=== PATIENT | male | born 1980 | race Caucasian/White ===

== ENCOUNTER → 2017-10-19 08:17 | Outpatient (CLI) | payer OTHER, SELFPAY ==
[2017-10-19 10:12] LABS: Ferritin 139 ng/mL (26-388); Iron 170 ug/dL (65-175); Iron Binding Capacity,Total 298 ug/dL (250-450)
[2017-10-20 15:48] LABS: HEPATITIS B SURFACE AG Negative (Negative); Hepatitis A IgM Antibody Negative (Negative); Hepatitis B Core AB IgM Negative (Negative)
[2017-10-21 11:37] LABS: ANTINUCLEAR ANTIBODIES DIRECT Negative (Negative); Anti-Mitochondrial AB <20.0 Units (0.0-20.0)
[2017-10-21 11:37] LABS: Anti-Smooth Muscle ABS 11 Units (0-19); Ceruloplasmin 18.3 mg/dL (16.0-31.0); Hep C Antibodies 0.1 s/co ratio (0.0-0.9)
== END ==
DX: R10.11 Right upper quadrant pain (principal); K76.0 Fatty (change of) liver, not elsewhere classified
CPT/HCPCS: 36415; 76705; 80074; 82390; 82728; 83516; 83540; 83550; 86038

== ENCOUNTER → 2020-07-16 08:54 | Outpatient (CLI) | payer OTHER, SELFPAY ==
[2018-03-01 09:38] VITALS: BMI 27.3
[2020-07-16 10:13] LABS: NATERA MAILED SPECIMEN
== END ==
PROVIDERS: Visit Provider Obstetrics & Gynecology
DX: Z31.440 Encounter of male for testing for genetic disease carrier status for procreative management (principal)
CPT/HCPCS: 36415

== ENCOUNTER → 2024-06-22 | Outpatient (CLI) | payer OTHER, SELFPAY ==
--- NOTE | 2024-06-22 13:00 | VAS_PTH ---
PATIENT: RACHEL MADDEN LOC: [facility] U#:[id number] AGE/SX: 44/M ROOM: RE06/22/[address]: Dr. Justus Dominguez MD : 1980 BED: DIS: 06/22/2024 SPEC #: [id number] RECD: 06/22/24 15:52 STATUS: MICHELLE DORIS #: [id number] INGRID: 06/22/24 13:[address]: Justus Dominguez DEPT: SURGICAL PATHOLOGY RECD BY: Jose Rossi ENTERED: 06/22/24 16:08 SP TYPE: VAS VERO DR: No Primary Care Phys Tissues: A - Vas deferens, NOS Procedures: Surgery Specimen Level II HEADER OPERATION: Vasectomy PRE-OP DIAGNOSIS: Vasectomy TISSUE SUBMITTED: A- Left vas deferens, B- Right vas deferens MICROSCOPIC DIAGNOSIS A. Left vas deferens, vasectomy: * Benign vas deferens with complete cross sections obtained B. Right vas deferens, vasectomy: * Benign vas deferens with complete cross sections obtained MICROSCOPIC DESCRIPTION Slides are reviewed. GROSS DESCRIPTION A. Received in formalin in a container labeled with the patient's name, date of , and L vas deferens is a 0.7 cm in length by 0.3 cm in diameter tubular portion of lanier-pink soft tissue. The outer surface is inked black, and it is submitted entirely in A1. B. Received in formalin in a container labeled with the patient's name, date of , and R vas deferens is a 0.8 cm in length by 0.3 cm in diameter tubular portion of lanier-pink soft tissue. The outer surface is inked green, and it is submitted entirely in B1. [facility] 06-22-2024 CPT:21914c3
== END | disposition home or self-care (01) ==
LOC: LABSPEC 15:55
PROVIDERS: Referring Provider Surgery; Visit Provider Surgery
DX: Z98.52 Vasectomy status (principal)
CPT/HCPCS: 88302

== ENCOUNTER → 2024-07-26 | Outpatient (CLI) | payer OTHER, SELFPAY ==
[2024-07-26 12:09] LABS: Semen Analysis Post Vas PRELIMINARY PRESENT
[2024-07-26 16:30] LABS: Pathologist Review Reviewed
--- OUTSIDE RECORDS SUMMARY | 2024-07-26 20:33 | XMS RPT_ITS | CCD ---
Author Organization [facility] CLINICAL ESTHETICIAN [facility] Care Team Providers Care Packing Line Operator Name Role Phone HUNG YODER Unavailable Unavailgreg Dominguez MD, Dr. Jerome Attending Provider Care Physician, No Primary Primary Care Provider Dr. Justus Herman MD Referring Provider BENITO LANGLEY Attending Unavailable KIRAN CAMPOS Attending Unavailable KIRAN CAMPOS Attending Unavailable Care Physician, No Primary Referring Provider Un available Justus Dominguez Attending Unavailable Justus Dominguez Attending Unavailable Care Physician, No Primary Primary Care Unava ilJustus Mcgraw Referring Unavailable Justus Dominguez Attending Unavailable Care Physician, No Primary Referring Unava ilable Care Physician, No Primary Primary Care Unava ilJustus Mcgraw Attending Unavailable Allergies Allergy Classification Reported Allergen(s) Allergy Type Date of Onset Reaction(s) Facility (3 sources) Iodine; Translations: [IODINE] Drug Allergy 3 [facility] Comment on above: states shell fish is what reacts (1 source) Shellfish; Translations: [SHELLFISH ALLERGY] Propensity to adverse reactions to drug (disorder) 3 [facility] Repository (1 source) Iodine Drug Allergy 5 [facility] Medications Current Medications Medication Drug Class(es) Dates Sig (Normalized) Sig (Original) cholecalciferol 0.025 mg oral capsule (2 sources) Vitamin D Start: 05-24-2024 take 1 capsule by mouth once daily Cholecalciferol (Vitamin D3) 25 mcg (1,000 unit) capsule Active 25 ug PO daily May 24, 2024 12:00am mecobalamin 1 mg chewable tablet (2 sources) Start: 04-10-2025 Mecobalamin (Vitamin B12) (B12 Active) 1,000 mcg tablet,chewable Active 1000 ug PO daily May 24, 2024 12:00am Milk Thistle (2 sources) Start: 05-24-2024 take 1 capsule by mouth twice daily Milk Thistle 150 mg capsule Active 150 mg PO TWICE A DAY May 24, 2024 12:00am give with meal/snack omega-3 acid ethyl esters (mcfp) 1000 mg oral capsule (2 sources) Start: 05-24-2024 [place]-3 Acid Ethyl Esters 1 gram capsule Active 1 NMA PO daily May 24, 2024 12:00am Completed/Discontinued Medications Medication Drug Class(es) Dates Sig (Normalized) Sig (Original) acetaminophen 325 mg / dextromethorphan hydrobromide 10 mg / phenylephrine hydrochloride 5 mg oral capsule (2 sources) Uncompetitive X-asuywg-C-aspartat e Receptor Antagonist, Sigma-1 Agonist, alpha-1 Adrenergic Agonist Start: 03-01-2018 End: 05-24-2024 Phenylephrine-Dm- Acetaminophen (Vicks Dayquil Cold-Flu Relief) 5-10-325 mg capsule Discontinued NMA PO March 01, 2018 1:00am May 24, 2024 8:47am acetaminophen 325 mg / guaiFENesin 200 mg / phenylephrine hydrochloride 5 mg oral tablet (2 sources) alpha-1 Adrenergic Agonist Start: 03-01-2018 End: 05-24-2024 Phenylephrine-[place] taminophen-Gg (Mucinex Sinus-Max Sev Congestn) 5-325-200 mg tablet Discontinued 2 {tbl} PO ONCE March 01, 2018 1:00am May 24, 2024 8:47am amoxicillin 875 mg / clavulanate 125 mg oral tablet (2 sources) Penicillin-class Antibacterial Start: 03-01-2018 End: 05-24-2024 Amoxicillin-Pot Clavulanate 875-125 mg tablet Discontinued 1 {tbl} PO TWICE A DAY March 01, 2018 1:00am May 24, 2024 8:46am LORazepam 2 mg oral tablet (2 sources) Benzodiazepine Start: 05-24-2024 End: 05-25-2024 take 1 tablet by mouth once Lorazepam (Ativan) 2 mg tablet Discontinued 2 mg PO ONCE 1 1 May 24, 2024 12:00am May 24, 2024 12:00am May 25, 2024 12:09am Take two hours before procedure oxyCODONE hydrochloride 5 mg oral tablet (2 sources) Opioid Agonist Start: 06-22-2024 End: 06-25-2024 take 1 tablet by mouth every four hours as needed for pain Oxycodone 5 mg tablet Discontinued 5 mg PO Q4H as needed for pain 7 3 June 22, 2024 June 24, 2024 12:00am June 25, 2024 12:07am Problems Active Problems Problem Classification Problem Date Documented Date Episodic/Chronic Attention-deficit, conduct, and disruptive behavior disorders (2 sources) Attention-deficit hyperactivity disorder, unspecified type; Translations: [Attention-deficit hyperactivity disorder, unspecified type] Onset: 11-18-2022 Chronic Chronic obstructive pulmonary disease and bronchiectasis (2 sources) Bronchitis; Translations: [Bronchitis, not specified as acute or chronic] 05-24-2024 Episodic Contraceptive and procreative management (11 sources) Patient encounter status; Translations: [Encounter for other general counseling and advice on contraception] Onset: 06-22-2024 05-24-2024 Episodic Other upper respiratory infections (2 sources) Acute frontal sinusitis; Translations: [Acute frontal sinusitis, unspecified] 05-24-2024 Episodic Past or Other Problems Problem Classification Problem Date Documented Da te Episodic/Chronic Allergic reactions (2 sources) Allergic contact dermatitis due to plants, except food; Translations: [Allergic contact dermatitis due to plants, except food] Onset: 08-03-2023 Episodic Results Test Name Value Interpretation Reference Range Facility Surgery Visit Reporton 06-29 Surgery Visit Report [facility] [address] [place] [address]. [address] [place] [address] OFFICE VISIT Date of Service: 06/29/24 MR#: [id number] Acct: [id number] Name: RACHEL MADDEN Rep #: [id number] : 1980 Provider: Dr. Justus fuentes MD Age/Sex: 44/M Location: [facility] Status: Signed Intake Vital Signs 03/01/18 09:38 Height 5 ft 11.5 in Intake Visit Reasons: VASECTOMY DOS 06/22 Chief Complaint: vasectomy 06/22 Is patient in pain?: No Allergies iodine Allergy (Verified 06/29/24 09:20) Unknown Medications ???Medication ???Instructions ???Recorded ???Confirmed ???Type cholecalciferol (vitamin D3) 25 25 mcg PO QDAY 05/24/24 06/29/24 H istory mcg (1,000 unit) capsule mecobalamin (vitamin B12) 1,000 1,000 mcg PO QDAY 05/24/24 5 History mcg chewable tablet (B12 Active) milk thistle 150 mg capsule 150 mg PO BID 05/24/24 06/29/24 Hi story omega-3 acid ethyl esters 1 gram 1 cap PO QDAY 05/24/24 06/29/24 Hi story capsule Subjective Details: Patient doing well after vasectomy with no complaints Objective Details: Incisions are clean dry and intact and sutures were removed Coding Level of Care Code Global Post Op Diagnoses S/P vasectomy Z98.52 [facility] Medical History (Updated 06/29/24 @ 09:20 by Anastasia Wallace) Acute frontal sinusitis Bronchitis Surgical History (Updated 06/28/24 @ 12:20 by Anastasia Wallace) S/P vasectomy History of eye surgery Social History Smoking Status: Never smoker alcohol intake: never Assessment and Plan (No Qualifiers) Assessment and Plan (1) S/P vasectomy: Status: Acute Plan: Patient had vasectomy in the office a week ago. He is tolerating postoperative course well. He was informed that he is not sterile yet and he was given specimen cups for semen analysis. Justus Dominguez MD Pager: [facility] [address] [place] [address], [address] [place] [address] Office: 06/29/24 7612 Date uJstus Dominguez MD [facility] Signature: Date (if applicable) CC: Normal [facility] Surgery Specimen Level IIon 06-22-2024 Surgery Specimen Level II Patient Age/Sex Location Account Attending Physician RACHEL MADDEN / LABSTRUDY [id number] Dr. Justus Dominguez MD Specimen: Received: 06/22/24 Status: MICHELLE Gonzalez Num: [id number] Spec Type: VAS Subm Dr: Dr. Justus Dominguez MD HEADER OPERATION: Vasectomy PRE-OP DIAGNOSIS: Vasectomy TISSUE SUBMITTED: A- Left vas deferens, B- Right vas deferens MICROSCOPIC DIAGNOSIS A. Left vas deferens, vasectomy: * Benign vas deferens with complete cross sections obtained B. Right vas deferens, vasectomy: * Benign vas deferens with complete cross sections obtained MICROSCOPIC DESCRIPTION Slides are reviewed. GROSS DESCRIPTION A. Received in formalin in a container labeled with the patient's name, date of , and L vas deferens is a 0.7 cm in length by 0.3 cm in diameter tubular portion of lanier-pink soft tissue. The outer surface is inked black, and it is submitted entirely in A1. B. Received in formalin in a container labeled with the patient's name, date of , and R vas deferens is a 0.8 cm in length by 0.3 cm in diameter tubular portion of lanier-pink soft tissue. The outer surface is inked green, and it is submitted entirely in B1. [facility] 06-22-2024 CPT:43486k0 Patient Age/Sex Location Account Attending Physician [facility]ADDEN [id number]. Justus Dominguez MD Signed (signature on file) Dr. Parisa Moon, DO 06/27/24 1625 Normal [facility] Comment on above: Performed By: #### PSUII #### [facility] [address] [place], [address] Surgery Visit Reporton 06-22 Surgery Visit Report [facility] [address] [place] [address] OFFICE VISIT Date of Service: 06/22/24 MR#: [id number] Acct: [id number] Name: RACHEL MADDEN Rep #: [id number] : 1980 Provider: Dr. Justus fuentes MD Age/Sex: 44/M Location: [facility] Status: Signed Intake Intake Visit Reasons: VASECTOMY Chief Complaint: vasectomy Is patient in pain?: No Allergies iodine Allergy (Verified 06/22/24 12:57) Unknown Medications ???Medication ???Instructions ???Recorded ???Confirmed ???Type cholecalciferol (vitamin D3) 25 25 mcg PO QDAY 05/24/24 06/22/24 H istory mcg (1,000 unit) capsule mecobalamin (vitamin B12) 1,000 1,000 mcg PO QDAY 05/24/24 5 History mcg chewable tablet (B12 Active) milk thistle 150 mg capsule 150 mg PO BID 05/24/24 06/22/24 Hi story omega-3 acid ethyl esters 1 gram 1 cap PO QDAY 05/24/24 06/22/24 Hi story capsule oxycodone 5 mg tablet 5 mg PO Q4H PRN pain 3 days #7 tab s 06/22/24 06/22/24 Rx PFSH Medical History (Updated 06/22/24 @ 12:52 by Anastasia Wallace) Acute frontal sinusitis Bronchitis Surgical History (Updated 05/24/24 @ 08:46 by Anastasia Wallace) History of eye surgery Social History Smoking Status: Never smoker alcohol intake: never HPI HPI HPI: Patient is a 44-year-old male here for vasectomy. This was discussed during his last visit. ROS General General: No weight change, appetite, fatigue, colon cancer, breast cancer or weakness HEENT HEENT: Yes eye surgery; No difficulty swallowing, eye injury, swollen glands or hoarseness Endo Endocrine: No thyroid disease, diabetes mellitus, thyroid cancer, Hair loss, heat intolerance or cold intolerance Skin Skin: No rash or changing moles Musc Musculoskeletal: No back problems, arthritis, rheumatoid arthritis, gout or joint pain Cardio Cardiovascular: No murmur, pacemaker, heart disease, atrial fibrillation, high blood pressure, heart attack, heart stent, palpitations, shortness of breath with exertion or chest pain Psych Psychiatric: No depression, anxiety or hearing voices Resp Respiratory: No shortness of breath, No sleep apnea, No cough, No COPD, No asthma, No emphysema and No wheezing Gastro Gastrointestinal: No abdominal pain, No nausea or vomiting, No diarrhea, No constipation, No blood in stool, No acid reflux, No hemorrhoids, No ulcers, No gallbladder problem and No black,tarry stools Jordan Hematologic: No blood thinners, No blood disorders, No bleeding, No anemia and No blood clots Neuro Neurologic: No system reviewed and no additional complaints, except as documented, No as per HPI, No abnormal gait, No abnormal hearing, No abnormal movements, No abnormal speech, No behavioral changes, No burning sensations, No confusion, No convulsions, No disequilibrium, No dizziness, No localized weakness, No frequent falls, No headache(s), No lack of coordination, No loss of vision, No memory loss, No numbness, No other visual disturbances, No radicular pain, No restless legs, No sensory deficit, No syncope, No tingling, No tremor(s), No weakness and No other Office Procedures Procedure Time Out Time Out Informed consent given: Yes Consent signed: Yes Time out checklist: patient, procedure, site marked/identified, positioning of patient, supplies available, allergies confirmed and team agrees on procedure Time out staff in room: Yes Time out verified: Yes Time out date: 06/22/24 Time out time: 13:00 Vasectomy Provider Documentation Provider Documentation: Bilateral partial vasectomy Time out and informed consent was obtained. The patient was taken to the procedure room and placed supine on the table. Bilateral scrotal areas were clipper and Betadine prepped. 1% lidocaine mixed 50-50 with 0.5% Marcaine was utilized as a local anesthetic. Less than a total of 10 cc was utilized. Bilateral scrotal incisions were created. Sharp and blunt dissection was used to identify the vas deferens. A segment was cleared, the ends were crushed, and segments were excised. The ends were secured with 3-0 chromic inverted and resecured. The skin edges were approximated with simple sutures of 3-0 chromic. Topical antibiotic ointment and gauze applied. He was given activity and wound care instructions. The specimens are submitted in formalin for analysis. He is scheduled to return to my office in 1 week's time. He has been provided analgesics as prescribed. He is well aware that he has not yet cleared from utilizing other means of control. He is aware that 2 negative consecutive semen counts will be required prior to releasing him from utilizing other means of control. He is aware that this is his responsibility to complete. He has had a (more content not included)... Normal [facility] Surgery Visit Reporton 05-24 Surgery Visit Report [facility] [address] [place] [address]. [address] [place] [address] OFFICE VISIT Date of Service: 05/24/24 MR#: [id number] Acct: [id number] Name: RACHEL MADDEN Rep #: [id number] : 1980 Provider: Dr. Justus fuentes MD Age/Sex: 43/M Location: [facility] Status: Signed Intake Vital Signs 05/24/24 08:46 Weight: 213 lb BP 120/73 Blood Pressure Location Rt brachial Position Sitting Respiration 18 Pulse 61 Pulse Source Monitor Pulse Oximetry (%) 99 Oxygen Delivery Method room air Intake Visit Reasons: VASECTOMY Chief Complaint: consult for vasectomy Is patient in pain?: No Allergies iodine Allergy (Verified 05/24/24 08:46) Unknown Medications ???Medication ???Instructions ???Recorded ???Confirmed ???Type cholecalciferol (vitamin D3) 25 25 mcg PO QDAY 05/24/24 05/24/24 H istory mcg (1,000 unit) capsule lorazepam 2 mg tablet (Ativan) 2 mg PO ONCE 1 day #1 TAB 05/24/24 05/24/24 Rx mecobalamin (vitamin B12) 1,000 1,000 mcg PO QDAY 05/24/24 5 History mcg chewable tablet (B12 Active) milk thistle 150 mg capsule 150 mg PO BID 05/24/24 05/24/24 Hi story omega-3 acid ethyl esters 1 gram 1 cap PO QDAY 05/24/24 05/24/24 Hi story capsule PFSH Medical History (Updated 05/24/24 @ 08:44 by Anastasia Wallace) Acute frontal sinusitis Bronchitis Surgical History (Updated 05/24/24 @ 08:46 by Anastasia Wallace) History of eye surgery Social History Smoking Status: Never smoker alcohol intake: never HPI HPI HPI: Patient is a 43-year-old male here for vasectomy for sterilization. He reports his is on board. ROS General General: No weight change, appetite, fatigue, colon cancer, breast cancer or weakness HEENT HEENT: Yes eye surgery; No difficulty swallowing, eye injury, swollen glands or hoarseness Endo Endocrine: No thyroid disease, diabetes mellitus, thyroid cancer, Hair loss, heat intolerance or cold intolerance Skin Skin: No rash or changing moles Musc Musculoskeletal: No back problems, arthritis, rheumatoid arthritis, gout or joint pain Cardio Cardiovascular: No murmur, pacemaker, heart disease, atrial fibrillation, high blood pressure, heart attack, heart stent, palpitations, shortness of breath with exertion or chest pain Psych Psychiatric: No depression, anxiety or hearing voices Resp Respiratory: No shortness of breath, No sleep apnea, No cough, No COPD, No asthma, No emphysema and No wheezing Gastro Gastrointestinal: No abdominal pain, No nausea or vomiting, No diarrhea, No constipation, No blood in stool, No acid reflux, No hemorrhoids, No ulcers, No gallbladder problem and No black,tarry stools Jordan Hematologic: No blood thinners, No blood disorders, No bleeding, No anemia and No blood clots Neuro Neurologic: No system reviewed and no additional complaints, except as documented, No as per HPI, No abnormal gait, No abnormal hearing, No abnormal movements, No abnormal speech, No behavioral changes, No burning sensations, No confusion, No convulsions, No disequilibrium, No dizziness, No localized weakness, No frequent falls, No headache(s), No lack of coordination, No loss of vision, No memory loss, No numbness, No other visual disturbances, No radicular pain, No restless legs, No sensory deficit, No syncope, No tingling, No tremor(s), No weakness and No other Exam Const General: cooperative Orientation: alert and oriented x3 HENNC Head: normal to inspection Neck Neck: normal visual inspection and full ROM Chest Chest palpation inspection: normal inspection of the chest Resp Effort Inspection: normal respiratory effort Auscultation: clear to auscultation bilaterally Cardio Rate: regular rate Rhythm: regular rhythm GI Inspection: non-distended Palpation: soft and nontender Skin General: no rashes or lesions noted Neuro General: patient alert and patient oriented x3 Extrem General: full ROM Psych Appearance: grossly normal Mental Status: mental status grossly normal Assessment and Plan Assessment and Plan (1) Encounter for vasectomy counseling: Status: Acute Plan: I discussed bilateral partial vasectomy with the patient in detail. I discussed the procedure in detail as well as the risks of the procedure. I discussed the risks including but not limited to bleeding, infection, injury to spermatic cord, spermatocele. I discussed that this procedure is not perfect and there was a very small failure rate and I also discussed that this is a nonreversible procedure and that he would not be immediately sterile. I discussed that he would be considered sterile after two consecutive negative semen analysis tests. I recommended that the patient neil (more content not included)... Normal [facility] Comprehensive Metabolic Pane [place] 10-06-2021 Albumin [Mass/Vol] 4.3 g/dL Normal 3.2-4.8 [facility] Comment on above: Order Comment: Items in this order inclu de: HgbA1C, Comprehensive Metabolic Panel, Lipid Panel Testing Performed By: [facility] [address] [place] [id number] CLIA#:[id number] Dr. Mark Landa, Barge Pilot Performed By: #### C 47, C8, C406 #### [facility] [address] [place] [address] Albumin/Globulin [Mass ratio] 1.7 {ratio} Normal 1.3-2.1 [facility] Comment on above: Order Comment: Items in this order inclu de: HgbA1C, Comprehensive Metabolic Panel, Lipid Panel Testing Performed By: [facility] [address] [place] [address] CLIA#:[id number] [address] Mark Landa, Barge Pilot Performed By: #### C 47, C8, C406 #### [facility] [address] [place] [address] [place] [address] Alk Phos 67 U/L Normal 40-127 [facility] Comment on above: Order Comment: Items in this order inclu de: HgbA1C, Comprehensive Metabolic Panel, Lipid Panel Testing Performed By: [facility] [address] [place] [address] CLIA#:[id number] [address] Mark Landa, Barge Pilot Performed By: #### C 47, C8, C406 #### [facility] [address] [place] [address] ALT [Catalytic activity/Vol] 28 U/L Normal 10-49 [facility] Comment on above: Order Comment: Items in this order inclu de: HgbA1C, Comprehensive Metabolic Panel, Lipid Panel Testing Performed By: [facility] [address] [place] [address] CLIA#:[id number] [address] Mark Landa, Barge Pilot Performed By: #### C 47, C8, C406 #### [facility] [address] [place] [address] AST [Catalytic activity/Vol] 23 U/L Normal <34 [facility] Comment on above: Order Comment: Items in this order inclu de: HgbA1C, Comprehensive Metabolic Panel, Lipid Panel Testing Performed By: [facility] [address] [place] [address] CLIA#:[id number] Dr. Mark Landa, Barge Pilot Performed By: #### C 47, C8, C406 #### [facility] [address] [place] [address] B/C Ratio 15.5 Ratio Normal 10.0-28.6 [facility] Comment on above: Order Comment: Items in this order inclu de: HgbA1C, Comprehensive Metabolic Panel, Lipid Panel Testing Performed By: [facility] [address] [place] [address] CLIA#:[id number] [address] Makr Landa, Barge Pilot Performed By: #### C 47, C8, C406 #### [facility] [address] [place] [address] [address] [place] [address] Bilirubin [Mass/Vol] 0.5 mg/dL Normal 0.3-1.2 [facility] Comment on above: Order Comment: Items in this order inclu de: HgbA1C, Comprehensive Metabolic Panel, Lipid Panel Testing Performed By: [facility] [address] [place] [address] CLIA#:[id number] [address] Mark Landa, Barge Pilot Performed By: #### C 47, C8, C406 #### [facility] [address] [place] [address] [address] [place] [address] Calcium [Mass/Vol] 9.2 mg/dL Normal 8.3-10.6 [facility] Comment on above: Order Comment: Items in this order inclu de: HgbA1C, Comprehensive Metabolic Panel, Lipid Panel Testing Performed By: [facility] [address] [place] [address] CLIA#:[id number] [address] Mark Landa, Barge Pilot Performed By: #### C 47, C8, C406 #### [facility] [address] [place] [address] Chloride [Moles/Vol] 106 mmol/L Normal 98-107 [facility] Comment on above: Order Comment: Items in this order inclu de: HgbA1C, Comprehensive Metabolic Panel, Lipid Panel Testing Performed By: [facility] [address] [place] [address] CLIA#:[id number] [address] Mark Landa, Barge Pilot Performed By: #### C 47, C8, C406 #### [facility] [address] [place] [address] CO2 [Moles/Vol] 27 mmol/L Normal 20-31 [facility] Comment on above: Order Comment: Items in this order inclu de: HgbA1C, Comprehensive Metabolic Panel, Lipid Panel Testing Performed By: [facility] [address] [place] [address] CLIA#:[id number] [address] Mark Landa, Barge Pilot Performed By: #### C 47, C8, C406 #### [facility] [address] [place] [address] [address] [place] [address] Creatinine [Mass/Vol] 1.1 mg/dL Normal 0.7-1.3 [facility] Comment on above: Order Comment: Items in this order inclu de: HgbA1C, Comprehensive Metabolic Panel, Lipid Panel Testing Performed By: [facility] [address] [place] [address] CLIA#:[id number] [address] Mark Lnada, Barge Pilot Performed By: #### C 47, C8, C406 #### [facility] [address] [place] [address] GFR 74 mL/min per 1.73 Normal >60 [facility] Comment on above: Order Comment: Items in this order inclu de: HgbA1C, Comprehensive Metabolic Panel, Lipid Panel Testing Performed By: [facility] [address] [place] [address] CLIA#:[id number] [address] Mark Landa, Barge Pilot Result Comment: The GFR estimate is not adjusted for race. If the patient's race is -[place], the GFR estimate must be multiplied by a factor of 1.21. Performed By: #### C 47, C8, C406 #### [facility] [facility] [address] [place] [address] Globulin (S) [Mass/Vol] 2.5 g/dL Normal [facility] Comment on above: Order Comment: Items in this order inclu de: HgbA1C, Comprehensive Metabolic Panel, Lipid Panel Testing Performed By: [facility] [address] [place] [address] CLIA#:[id number] Dr. Mark Landa, Barge Pilot Performed By: #### C 47, C8, C406 #### [facility] [address] [place] [address] Glucose [Mass/Vol] 67 mg/dL Low 74-106 [facility] Comment on above: Order Comment: Items in this order inclu de: HgbA1C, Comprehensive Metabolic Panel, Lipid Panel Testing Performed By: [facility] [address] [place] [address] CLIA#:[id number] Dr. Mark Landa, Barge Pilot Performed By: #### C 47, C8, C406 #### [facility] [address] [place] [address] Potassium [Moles/Vol] 4.0 mmol/L Normal 3.5-5.1 [facility] Comment on above: Order Comment: Items in this order inclu de: HgbA1C, Comprehensive Metabolic Panel, Lipid Panel Testing Performed By: [facility] [address] [place] [address] CLIA#:[id number] [address] Mark Landa, Barge Pilot Performed By: #### C 47, C8, C406 #### [facility] [address] [place] [address] Protein [Mass/Vol] 6.8 g/dL Normal 5.7-8.2 [facility] Comment on above: Order Comment: Items in this order inclu de: HgbA1C, Comprehensive Metabolic Panel, Lipid Panel Testing Performed By: [facility] [address] [place] [address] CLIA#:[id number] [address]. Mark Landa, Barge Pilot Performed By: #### C 47, C8, C406 #### [facility] [address] [place] [address] Sodium [Moles/Vol] 142 mmol/L Normal 136-145 [facility] Comment on above: Order Comment: Items in this order inclu de: HgbA1C, Comprehensive Metabolic Panel, Lipid Panel Testing Performed By: [facility] [address] [place] [address] CLIA#:[id number] [address] Mark Landa, Barge Pilot Performed By: #### C 47, C8, C406 #### [facility] [place] [address] Urea nitrogen [Mass/Vol] 17 mg/dL Normal 9-23 [facility] Comment on above: Order Comment: Items in this order inclu de: HgbA1C, Comprehensive Metabolic Panel, Lipid Panel Testing Performed By: [facility] [address] [place] [address] CLIA#:[id number] Dr. Mark Landa, [place]ge Pilot Performed By: #### C 47, C8, C406 #### [facility] [address] [place] [address] [address] [place] [address] [id number] 10-06-2021 HbA1c (Bld) [Mass fraction] 4.9 % Normal <5.7 [facility] Comment on above: Order Comment: Items in this order inclu de: HgbA1C, Comprehensive Metabolic Panel, Lipid Panel Testing Performed By: [facility] [address] [place] [address] CLIA#:[id number] [address] Mark Landa, Barge Pilot Result Comment: Refe rence Interval: Normal: below 5.7%. Prediabetes: 5.7% to 6.4%. Diabetes: 6.5% or above. Performed By: #### C 47, C8, C406 #### [facility] [address] [place] [address] Lipid Panelon 10-06-2021 Cholesterol [Mass/Vol] 168 mg/dL Normal <200 [facility] Comment on above: Result Comment: Low-risk levels (desirab le) < 200 mg/dL Moderate-risk levels (borderline) 200 to 239 mg/dL High-risk levels > or = 240 mg/dL Performed By: #### C 47, C8, C406 #### [facility] [address] [place] [address] Cholesterol in HDL [Mass/Vol] 56 mg/dL Low >60 [facility] Comment on above: Performed By: #### C47, C8, C406 #### [facility] [address] [place] [address] [address] [place] [address] Cholesterol in LDL [Mass/Vol] 91 mg/dL Normal <130 [facility] Comment on above: Performed By: #### C47, C8, C406 #### [facility] [address] [place] [address] [address] [place] [address] Cholesterol.tota l/Cholesterol in HDL [Mass ratio] 3.0 {ratio} Normal <4.0 [facility] Comment on above: Performed By: #### C47, C8, C406 #### [facility] [address] [place] [address] [address] [place] [address] Non-HDL Chol 112 Normal LDL Goal + 30 [facility] Comment on above: Result Comment: LDL and Non-HDL goal dep endent upon individual risk Performed By: #### C 47, C8, C406 #### [facility] [address] [place] [address] [address] [place] [address] Triglyceride [Mass/Vol] 104 mg/dL Normal <150 [facility] Comment on above: Performed By: #### C47, C8, C406 #### [facility] [address] [place] [address] [address] [place] [address] VLDL-Calc 21 mg/dl Normal <30 [facility] Comment on above: Performed By: #### C47, C8, C406 #### [facility] [address] [place] [address] CNOVon 08-30-2017 CNOV Office Visit (GASTA5) RACHEL MADDEN ([id number]) 1980 MDate Time Provider Department08/30/17 10:10 AM HUNG YODER GASTA5 During your visit today, we recorded the following information about you: Pulse Blood pressure Weight Height 64/minute 137/85 91.2 kg 1.778 Jeanette Villegas MD 08/30/2017 7:32 PM SignedNAME: Rachel Marte WillieAGE: 37 year oldPatient is referred in consultation by Self for an opinion regarding fattyliver and my final recommendations will be communicated back to the requestingphysician by way of letter and shared Medical Record.PRESENTING COMPLAINT AND HISTORYWilliam Estuardo Madden is a 37 year old year old male who presents with Fattyliver.Complains of abd pain, right sided, intermittent, does not wake him up duringthe night. Pain gets worse when lying on the right side sometimes. Notassociated with eating nor BM. Pain has been present for years. He had RUQ usin 2011 and he was told that he has fatty liver. He used to binge drinking atthat time 10-15 drinks x2 on the weekends. He is down to 5 drinks per week now.Metabolic Syndrome Risk factors: 0 /51) Diabetes/ Abnormal FBS >100mg/dL: No2) Hypertension : No3)Triglycerides more then 150 : No4) HDL (<50 female and <40 male):No5) Central obesity ( Waist >102 men and >88 female) - Body mass index is 28.84kg/m?.ALLYSON: ? Was prescribed CPAPWork Up:Liver Biopsy: NoImaging: ultrasound, 2011EGD: NoPAST SURGICAL HISTORYProcedure Laterality Date- NONEPAST MEDICAL HISTORYDiagnosis Date- PsoriasisSocial History Marital status: Spouse name: Years of education: Number of children:Social History Main Topics Smoking status: Never Smoker Smokeless tobacco: Never Used Alcohol use: Yes 7.5 oz/week Cans of Beer (12oz): 5 per weekCurrent Outpatient Prescriptions:dextroamphet amine-amphetamine (ADDERALL) 5 mg tablet 10 mg. Disp: Rfl: 0metaxalone (SKELAXIN) 800 mg tablet Take 1 tablet by mouth three times daily asneeded for Pain. for pain or muscle spasms. Disp: 42 tablet Rfl: 2No current facility-administered medications for this visit.ALLERGIESAllergen Reactions- Iodine SwellingFAMILY HISTORYLiver Problems: NoColitis: NoNo family history on file.GENERAL ROSColon polyps: NoColon cancer: NoOther cancer: NoRadiation / Chemotherapy: NoCrohn's disease / Ulcerative colitis: NoHigh cholesterol or triglycerides: NoUlcers: NoGallstones: NoHepatitis / jaundice: NoHeart Disease: NoLung Disease: NoLiver problems: NoThyroid disease: NoKidney stones: NoPancreatitis: NoDiabetes: NoArthritis: NoRheumatic fever: NoGastrointestinal bleeding: NoDepression or other mental illness: NoOther personal illness: NoGI SPECIFIC ROSDifficulty swallowing / foods sticking in throat: NoHeartburn: NoHoarseness: NoChronic cough: NoRegurgitation: NoChest pain: NoFilling up quickly at meals: NoLoss of appetite: NoNausea: NoVomiting: NoAbdominal pain: YesRecent change in bowel movements: NoBloody or black, bowel movements: NoConstipation: NoDiarrhea: NoLoss of control of bowel movements: NoNight sweats, fever, chills: NoThought or memory problems: YesFluid in abdomen (ascites): NoProminent leg swelling: NoVomiting blood: NoRecent change in weight: NoPHYSICAL EXAMINATIONBP 137/85 Pulse 64 Ht 5' 10 (1.78m) Wt 201 lb (91.2kg) SpO2 100% BMI28.84 kg/(m2).General Appearance: Well appearing, alert, in no acute distress, well-hydrated,well nourished.Eyes: PERRLA, conjunctiva and sclera normalOropharynx: Lips, tongue, and oral mucosa normal. There is no thrush or oralulcers.Lungs:breath sounds clear to auscultation bilaterally, no crackles, rhonchi, orwheezesHeart: regular rate and rhythm, no murmurs or gallops.Abdomen: tenderness to deep palpation in the right upper quadrant. Alsotenderness when coughing and on the lower rib border.Extremities: no cyanosis or edemaSkin: no jaundice, no spider angiomas, no palmar erythemaNeuro:alert, oriented x 3, pleasant and in no acute distressRecent Labs:No results found for: HB, HCT, WBCNo results found for: GLUC, K, NA, CHLOR, CO2, CREAT, BUN, ANION, CANo results found for: ALB, TBILI, CBILI, ALKPHOS, AST, ALT, TPROTComputed MELD-Na score unavailable. Necessary lab results were not found in thelast year.Computed MELD score unavailable. Necessary lab results were not found in thelast year.AssessmentIMPRESSIONW hayder Madden is a 37 year old year old male who comes for evaluation offatty liver and RUQ pain that has been present for years. Labs from last yearshowed normal ALT, AST, ALP, T Bili# Fatty liver# RUQ painHis abd pain appears to be musculoskeletal on exam as above. Possiblecostochondritis in the twelfth rib. His fatty liver that was seen on us in was related to heavy alcohol drinking at that time.- Trial of tylenol up to 2 g per day and metaxalone for the pain- Check LFT, BMP, chronic liver disease panel. Also check RUQPt prefers to have tests done locally and will fax results to Dr. Wallace Roldan MDTransplant Hepatology FellowJuly 201711:20 AMPager: [phone] the above note for details. I saw and evaluated the patient with . 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 for pain or muscle spasms.Disp: 42 tabletRfl: 2 US ABD RT UPPER QUADRANT [1689997] Order #: [id number] FUTURE HEPATIC FUNCTION PNL [SQHFP] Order #: [id number] FUTURE BASIC METABOLIC PNL [SQBMP] Order #: [id number] FUTUREPrescriptions as of 08/30/2017 Sig: DEXTROAMPHETAMINE-AMPHETAM INE* 10 mg. METAXALONE 800 MG TABLET Take 1 tablet by mouth three *Problem List As Of Date 08/30/2017 Noted Resolved RUQ pain [R10.11] INVALID FOR*Prescriptions ordered this encounter Disp Refills Start End METAXALONE 800 MG TABLET 42 t* 2 08/30/2017 Class: Print RX Route: ORAL Sig: Take 1 tablet by mouth three times daily as needed for Pain. for pain or muscle spasms.Disposition: Return if symptoms worsen or fail to improve.Follow-up and Disposition History RecordedEncounter Number: [id number] Status:Closed by HUNG VILLEGAS MD on 08/30/17 Normal [facility] 08-30-2017 Protein HNO ID: [id number] thor: Hung Comer: (none)Author Type: PhysicianType: Progress NotesFiled: 08/30/2017 7:32 PMNote Text:NAME: Rachel MaddenAGE: 37 year oldPatient is referred in consultation by Self for an opinion regarding fattyliver and my final recommendations will be communicated back to therequesting physician by way of letter and shared Medical Record.PRESENTING COMPLAINT AND HISTORYWilliam Estuardo Madden is a 37 year old year old male who presents withFatty liver.Complains of abd pain, right sided, intermittent, does not wake him upduring the night. Pain gets worse when lying on the right side sometimes.Not associated with eating nor BM. Pain has been present for years. He hadRUQ us in 2011 and he was told that he has fatty liver. He used to bingedrinking at that time 10-15 drinks x2 on the weekends. He is down to 5drinks per week now.Metabolic Syndrome Risk factors: 0 /51) Diabetes/ Abnormal FBS >100mg/dL: No2) Hypertension : No3)Triglycerides more then 150 : No4) HDL (<50 female and <40 male):No5) Central obesity ( Waist >102 men and >88 female) - Body mass index is28.84 kg/m?.ALLYSON: ? Was prescribed CPAPWork Up:Liver Biopsy: NoImaging: ultrasound, 2011EGD: NoPAST SURGICAL HISTORYProcedure Laterality Date- NONEPAST MEDICAL HISTORYDiagnosis Date- PsoriasisSocial History Marital status: Spouse name: Years of education: Number of children:Social History Main Topics Smoking status: Never Smoker Smokeless tobacco: Never Used Alcohol use: Yes 7.5 oz/week Cans of Beer (12oz): 5 per weekCurrent Outpatient Prescriptions:dextroamphet amine-amphetamine (ADDERALL) 5 mg tablet 10 mg. Disp: Rfl: 0metaxalone (SKELAXIN) 800 mg tablet Take 1 tablet by mouth three timesdaily as needed for Pain. for pain or muscle spasms. Disp: 42 tablet Rfl:2No current facility-administered medications for this visit.ALLERGIESAllergen Reactions- Iodine SwellingFAMILY HISTORYLiver Problems: NoColitis: NoNo family history on file.GENERAL ROSColon polyps: NoColon cancer: NoOther cancer: NoRadiation / Chemotherapy: NoCrohn's disease / Ulcerative colitis: NoHigh cholesterol or triglycerides: NoUlcers: NoGallstones: NoHepatitis / jaundice: NoHeart Disease: NoLung Disease: NoLiver problems: NoThyroid disease: NoKidney stones: NoPancreatitis: NoDiabetes: NoArthritis: NoRheumatic fever: NoGastrointestinal bleeding: NoDepression or other mental illness: NoOther personal illness: NoGI SPECIFIC ROSDifficulty swallowing / foods sticking in throat: NoHeartburn: NoHoarseness: NoChronic cough: NoRegurgitation: NoChest pain: NoFilling up quickly at meals: NoLoss of appetite: NoNausea: NoVomiting: NoAbdominal pain: YesRecent change in bowel movements: NoBloody or black, bowel movements: NoConstipation: NoDiarrhea: NoLoss of control of bowel movements: NoNight sweats, fever, chills: NoThought or memory problems: YesFluid in abdomen (ascites): NoProminent leg swelling: NoVomiting blood: NoRecent change in weight: NoPHYSICAL EXAMINATIONBP 137/85 Pulse 64 Ht 5' 10 (1.78m) Wt 201 lb (91.2kg) SpO2 100% BMI 28.84 kg/(m2).General Appearance: Well appearing, alert, in no acute distress,well-hydrated, well nourished.Eyes: PERRLA, conjunctiva and sclera normalOropharynx: Lips, tongue, and oral mucosa normal. There is no thrush ororal ulcers.Lungs:breath sounds clear to auscultation bilaterally, no crackles,rhonchi, or wheezesHeart: regular rate and rhythm, no murmurs or gallops.Abdomen: tenderness to deep palpation in the right upper quadrant. Alsotenderness when coughing and on the lower rib border.Extremities: no cyanosis or edemaSkin: no jaundice, no spider angiomas, no palmar erythemaNeuro:alert, oriented x 3, pleasant and in no acute distressRecent Labs:No results found for: HB, HCT, WBCNo results found for: GLUC, K, NA, CHLOR, CO2, CREAT, BUN, ANION, CANo results found for: ALB, TBILI, CBILI, ALKPHOS, AST, ALT, TPROTComputed MELD-Na score unavailable. Necessary lab results were not foundin the last year.Computed MELD score unavailable. Necessary lab results were not found inthe last year.AssessmentIMPRESSIONW hayder Madden is a 37 year old year old male who comes forevaluation of fatty liver and RUQ pain that has been present for years.Labs from last year showed normal ALT, AST, ALP, T Bili# Fatty liver# RUQ painHis abd pain appears to be musculoskeletal on exam as above. Possiblecostochondritis in the twelfth rib. His fatty liver that was seen on us [id number] likely was related to heavy alcohol drinking at that time.- Trial of tylenol up to 2 g per day and metaxalone for the pain- Check LFT, BMP, chronic liver disease panel. Also check RUQPt prefers to have tests done locally and will fax results to Dr.McCulloughBayan Yuli MDTransplant Hepatology FellowJuly 201711:20 AMPager: [phone] the above note for details. I saw and evaluated the patient with . I agree with the findings and the plan of care as documentedin the note.Hung Villegas MD Normal [facility] Vital Signs Date Time Vital Sign Value Performing Clinician Carrie bennett 05-24-2024 08:46-0400 Body weight 96.61 kg No Primary Care Physician [facility] 05-24-2024 08:46-0400 Diastolic blood pressure 73 mm[Hg] No Primary Care Physician [facility] 05-24-2024 08:46-0400 Heart rate 61 /min No Primary Care Physician [facility] 05-24-2024 08:46-0400 Respiratory rate 18 /min No Primary Care Physician [facility] 05-24-2024 08:46-0400 SaO2% (BldA) [Mass fraction] 99 % No Primary Care Physician [facility] 05-24-2024 08:46-0400 Systolic blood pressure 120 mm[Hg] No Primary Care Physician [facility] Encounters Encounter Date Encounter Type Care Provider Facility Start: 06-29-2024 End: 06-29-[address] Justus Dominguez MD -[facility] Work Phone: Start: 06-29-2024 End: 06-29-2024 ambulatory No Primary Care Physician [facility] Work Phone: Start: 06-26-2024 ambulatory KIRAN [facility] Start: 06-22-2024 End: 06-22-2024 ambulatory No Primary Care Physician [facility] Work Phone: Start: 06-22-2024 End: 06-22-[address] Justus Dominguez MD [facility] Work Phone: Start: 06-22-2024 End: 06-22-[address] Justus Dominguez MD -[facility] Work Phone: Start: 06-22-2024 End: 06-22-2024 ambulatory Justus Dominguez Facility:[facility] Start: 06-22-2024 End: 06-22-2024 ambulatory No Primary Care Physician Facility:[facility] Start: 05-24-2024 End: 05-24-[address] Justus Dominguez MD -[facility] Work Phone: Start: 05-24-2024 End: 05-24-2024 ambulatory Justus Dominguez Facility:[facility] Start: 04-10-2024 ambulatory KIRAN CAMPOS [facility] Start: 01-30-2024 ambulatory [facility] Start: 11-02-2023 ambulatory [facility] Start: 08-26-2023 ambulatory [facility] Start: 08-03-2023 ambulatory [facility] Start: 08-30-2017 End: 08-31-2017 Patient encounter HUNG YODER [facility] Procedures Date Procedure Procedure Detail Performing Clinician H/O: vasectomy S/P vasectomy No Primary C are Physician H/O: vasectomy S/P vasectomy Dr. Justus Dominguez MD Plan of Treatment Date Care Activity Detail Author [place] [Presenc e] in Semen by Light microscopy --post vasectomy [facility] Payers Date Payer Category Payer Self-pay 2022 Unknown [id number] 1980 Unknown [id number] 2.16.8 [id number] 1980 Unknown 2021 2.16.8 [id number] 1980 Unknown [id number] 2.16.8 [id number] 1980 Unknown [id number] 2.16.8 [id number] 1980 Unknown [id number] 2.16.8 [id number] 1980 Unknown [id number] 2.16.8 [id number] Unknown [employer] [id number] Unknown [place]ORIN [employer] [facility] [id number] Unknown [employer] [id number] Unknown [id number] 2.16.8 [id number] Unknown [id number] 2.16.8 [id number] Unknown [id number] 2.16.8 [id number] Unknown [id number] 2.16.8 [id number] Social History Date Type Detail Facility Start: 03-01-2018 [facility] Start: 1980 Sex Assigned At Male [facility] Progress note 06-29-2024 Note Date & Type Note Facility 06-29-2024 Progress note [facility] Progress note 06-29-2024 Note Date & Type Note Facility 06-29-2024 Progress note Note Date/Time June 29, 2024 9:34a m [facility] [address] [place] [address] OFFICE VISIT Date of Service: 06/29/24 MR#: [id number] Acct: [id number] Name: RACHEL MADDEN Rep #: [id number] : 1980 Provider: Dr. Nabila Dominguez MD Age/Sex: 44/M Location: [facility] Status: Signed Intake Vital Signs 03/01/18 09:38 Height 5 ft 11.5 in Intake Visit Reasons: VASECTOMY DOS 06/22 Chief Complaint: vasectomy 06/22 Is patient in pain?: No Allergies iodine Allergy (Verified 06/29/24 09:20) Unknown Medications ?Medication ?Instructions ?Recorded ?Confirmed ?Type cholecalciferol (vitamin D3) 25 25 mcg PO QDAY 5 06/29/24 History mcg (1,000 unit) capsule mecobalamin (vitamin B12) 1,000 1,000 mcg PO QDAY 05/1506/29/24 History mcg chewable tablet (B12 Active) milk thistle 150 mg capsule 150 mg PO BID 05/24/24 History omega-3 acid ethyl esters 1 gram 1 cap PO QDAY 06/29/24 History capsule Subjective Details: Patient doing well after vasectomy with no complaints Objective Details: Incisions are clean dry and intact and sutures were removed Coding Level of Care Code Global Post Op Diagnoses S/P vasectomy Z98.52 [facility] Medical History (Updated 06/29/24 @ 09:20 by Anastasia Wallace) Acute frontal sinusitis Bronchitis Surgical History (Updated 06/28/24 @ 12:20 by Anastasia Wallace) S/P vasectomy History of eye surgery Social History Smoking Status: Never smoker alcohol intake: never Assessment and Plan (No Qualifiers) Assessment and Plan (1) S/P vasectomy: Status: Acute Plan: Patient had vasectomy in the office a week ago. He is tolerating postoperative course well. He was informed that he is not sterile yet and he was given specimen cups for semen analysis. Justus Dominguez MD Pager: [facility] [address] [place] [address], [address] [place] [address] Office: 06/29/24 0934 <Electronically signed by Justus fernandez MD> Date _ Justus Dominguez MD Cosigner Signature: Date (if applicable) CC: ~ [facility] Work Phone: Evaluation note 05-24-2024 Note Date & Type Note Facility 05-24-2024 Evaluation note Diagnosis Onset Date Resolution Encounter for vasectomy counseling acute May 24, 2024 8:29am Encounter for vasectomy acute June 22, 2024 12 :49pm [facility] Work Phone: Evaluation note 05-24-2024 Note Date & Type Note Facility 05-24-2024 Evaluation note Diagnosis Onset Date Resolution Encounter for vasectomy counseling resolved May 24, 2024 8:29am Encounter for vasectomy resolved June 22, 2024 12 :49pm S/P vasectomy acute June 29, 2 025 9:17am [facility] Work Phone: Reason for referral (narrative) Note Date & Type Note Facility Reason for referral (narrative) No reason for referral information available [facility] Work Phone: Summary Purpose Family History No Family History Records FoundNo Family History Records FoundNo Family History Records FoundNo Family History Records Found Advance Directives No Advanced Directives Records FoundNo Advanced Directives Records FoundNo Advanced Directives Records FoundNo Advanced Directives Records Found Chief Complaint and Reason for Visit Chief Complaint Admit Date VASECTOMY May 24, 2024 8:2 9am VASECTOMY June 22, 2024 12:49p m VASECTOMY June 22, 2024 3:52pm Reason for Visit Admit Date Encounter for vasectomy counseling May 24, 2024 8:29am Encounter for vasectomy June 22, 2024 12 :49pm Chief Complaint Admit Date VASECTOMY May 24, 2024 8:2 9am VASECTOMY June 22, 2024 12:49p m VASECTOMY June 22, 2024 3:52pm VASECTOMY DOS 06/22June 29, 2024 9:17a m Reason for Visit Admit Date Encounter for vasectomy counseling May 24, 2024 8:29am Encounter for vasectomy June 22, 2024 12 :49pm S/P vasectomy June 29, 2024 9:17a m Additional Source Comments (unrecognized sect ion and content) No Status Records FoundNo Status Records FoundNo Status Records FoundNo Status Records Found INFORMATION SOURCE (unrecogn ized section and content) DATE CREATED AUTHOR 09/01/2017 [facility] DATE CREATED AUTHOR AUTHOR'S ORGANIZ ATION 10/09/2021 [facility] DATE CREATED AUTHOR AUTHOR'S ORGANIZ ATION 06/27/2024 [facility] DATE CREATED AUTHOR AUTHOR'S ORGANIZ ATION 06/30/2024 [facility] Care Teams (unrecognized sec tion and content) Team Status: Active Member Role Status Dates KIRAN CAMPOS Family Provider Active No Primary Care Physician Primary Care Provider Active Team Status: Inactive Member Role Status Dates Dr. Justus Dominguez MD Attending Provider Active Start: May 24, 2024 End: May 24, 2024 Team Status: Inactive Member Role Status Dates Dr. Justus Dominguez MD Attending Provider Active Start: June 22, 2024 End: June 22, 2024 Team Status: Inactive Member Role Status Dates No Primary Care Physician Primary Care Provider Active Start: June 22, 2024 End: June 22, 2024 Dr. Justus Dominguez MD Attending Provider Active Start: June 22, 2024 End: June 22, 2024 Dr. Justus Dominguez MD Referring Provider Active Start: June 22, 2024 End: June 22, 2024 Team Status: Active Member Role Status Dates No Primary Care Physician Primary Care Provider Active Team Status: Inactive Member Role Status Dates Dr. Justus Dominguez MD Attending Provider Active Start: June 29, 2024 End: June 29, 2024 No Primary Care Physician Primary Care Provider Active Start: June 29, 2024 End: June 29, 2024 No Primary Care Physician Referring Provider Active Start: June 29, 2024 End: June 29, 2024 Goals (unrecognized section and content) Goals may be documented in a n alternate sectionGoals may be documented in an alternate section FOR RECORDS PERTAINING TO PATIENTS WHO ARE OR HAVE BEEN ENROLLED IN A CHEMICAL DEPENDENCY/SUBSTANCEABUSE PROGRAM, SOME INFORMATION MAY BE OMITTED. This clinical summary was aggregated from multiple sources. Caution should be exercised in using it in the provision of clinical care. This summary normalizes information from multiple sources, and as a consequence, information in this document may materially change the coding, format and clinical context of patient data. In addition, data may be omitted in some cases. CLINICAL DECISIONS SHOULD BE BASED ON THE PRIMARY CLINICAL RECORDS. [employer] provides no warranty or guarantee of the accuracy or completeness of information in this document.
== END | disposition home or self-care (01) ==
LOC: LAB 10:44
PROVIDERS: Referring Provider Surgery; Visit Provider Surgery
DX: Z98.52 Vasectomy status (principal)
CPT/HCPCS: 89321

== ENCOUNTER → 2024-08-16 | Outpatient (CLI) | payer OTHER, SELFPAY | END | disposition home or self-care (01) | PROVIDERS: Referring Provider Surgery; Visit Provider Surgery | DX: Z98.52 Vasectomy status (principal) ==